=== PATIENT | female | born 1955 | race Caucasian/White ===

== ENCOUNTER 2016-05-25 19:02 | Emergency (ER) | payer BC ==
[~2016-05-25] VITALS: Ht 157.5 cm; Wt 65.9 kg
[2016-05-25] MEDS ORDERED: ROSUVASTATIN CA10 MG PO (19:37)
[2016-05-25] MEDS ORDERED: SERTRALINE HCL100 MG PO (19:37)
[2016-05-25 20:14] VITALS: BP 118/54
== END 2016-05-25 20:15 | disposition home or self-care (01) ==
LOC: EME 19:02
DX: S86.912A Strain of unspecified muscle(s) and tendon(s) at lower leg level, left leg, initial encounter (principal); W11.XXXA Fall on and from ladder, initial encounter
CPT/HCPCS: 73590; 99281; 99283